=== PATIENT | male | born 1990 | race Caucasian/White ===

== ENCOUNTER 2024-03-20 11:46 | Emergency (ER) | payer OTHER ==
[~2024-03-20] VITALS: Ht 170.2 cm; Wt 77.1 kg
[2024-03-20 11:55] VITALS: BP 112/76; PULSE 76; RESP 15; TEMP 98.3; O2SAT 100
[2024-03-20 12:05] VITALS: BP 112/76; PULSE 75; RESP 20; TEMP 98.7; O2SAT 98
== END 2024-03-20 15:31 | disposition home or self-care (01) ==
LOC: MED 11:46
DX: H66.92 Otitis media, unspecified, left ear (principal); H93.8X3 Other specified disorders of ear, bilateral; R11.2 Nausea with vomiting, unspecified
CPT/HCPCS: 99282